=== PATIENT | female | born 1960 | race Caucasian/White ===

== ENCOUNTER 2017-02-15 10:22 | Day surgery (SDC) | payer MEDICAID, SELFPAY | END 2017-02-15 11:35 | disposition home or self-care (01) | PROVIDERS: Family Provider Internal Medicine; Visit Provider Nurse Anesthetist, Certified Registered | DX: M51.16 Intervertebral disc disorders with radiculopathy, lumbar region (principal); M96.1 Postlaminectomy syndrome, not elsewhere classified | CPT/HCPCS: 95991 ==

== ENCOUNTER → 2017-06-11 10:35 | Outpatient (POV) | payer MEDICAID, SELFPAY ==
[2017-06-11 10:54] VITALS: BP 143/96; PULSE 117; RESP 20; TEMP 36.6; O2SAT 99; BMI 33.3
--- NOTE | 2017-06-11 12:41 | HMH.PMPROC ---
- Procedure Date: 06/11/17 Time: 11:25 Anesthesiologist:: Cheri Simpson APRN Complications:: None Pre-procedure Diagnosis:: degenerative disc disease of the lumbar spine with lumbar postlaminectomy syndrome and lumbar radiculopathy Post-procedure Diagnosis:: Same Indications for Procedure:: Patient is a 57-year-old female who presents today for pain pump adjustment. Patient states that she knows she should be coming for routine adjustments however she is unable to make it. She is not getting adequate pain relief rating her pain an 8 out of 10 today. Patient and I had a long discussion that this is a process and that she needs to try to be seen more often than every 3 months. Patient currently on a hydromorphone pump of 0.5 mg a day. Patient also utilizing a bolus. Today we will increase her pump. She denies any side effects to the medication. Physical Exam General: Alert and oriented x3, no acute distress, pleasant and cooperative, [on room air] Lungs: Resps E/U, Symmetrical chest expansion, [CTA bilateral] Eyes: PERRL Musculoskeletal: Flexion and extension of lumbar spine somewhat guarded secondary to pain, deep tendon reflexes normal, strength in upper and lower extremities [5/5], [abnormal gait noted] Neurological: speech clear, meat and poultry inspector equal, no gross sensory deficits Procedure Details:: Informed consent was obtained and the risks and benefits of the procedure were explained to the patient. The patient was taken to the procedure room and placed in a sitting position. Non-invasive monitoring was placed including noninvasive blood pressure cuff and noninvasive pulse oximeter. Patient's pump was interrogated and the rate was changed from 0.5 mg a day of Dilaudid to 0.75 mg a day of Dilaudid in her PTC was changed to 0.075 mg every 3 hours up to 6 times a day. Patient tolerated the procedure well. Plan and Disposition:: She will be in for a refill next month. We will adjust her again at that time. And I reiterated that she needs to make her appointment so that we can start better managing her pain. Patient states she does not want to be a bother. I stated that she needs to make sure that she comes to her appointment so we can adjust her pump. We will also check in a home refill for her. This note was dictated using voice recognition software and may contain errors or omissions
--- NOTE | 2017-06-11 12:44 | P.PCN_ITS ---
- Procedure Date: 06/11/17 Time: 11:25 Anesthesiologist:: Cheri Simpson APRN Complications:: None Pre-procedure Diagnosis:: degenerative disc disease of the lumbar spine with lumbar postlaminectomy syndrome and lumbar radiculopathy Post-procedure Diagnosis:: Same Indications for Procedure:: Patient is a 57-year-old female who presents today for pain pump adjustment. Patient states that she knows she should be coming for routine adjustments however she is unable to make it. She is not getting adequate pain relief rating her pain an 8 out of 10 today. Patient and I had a long discussion that this is a process and that she needs to try to be seen more often than every 3 months. Patient currently on a hydromorphone pump of 0.5 mg a day. Patient also utilizing a bolus. Today we will increase her pump. She denies any side effects to the medication. Physical Exam General: Alert and oriented x3, no acute distress, pleasant and cooperative, [ on room air] Lungs: Resps E/U, Symmetrical chest expansion, [CTA bilateral] Eyes: PERRL Musculoskeletal: Flexion and extension of lumbar spine somewhat guarded secondary to pain, deep tendon reflexes normal, strength in upper and lower extremities [5/5], [abnormal gait noted] Neurological: speech clear, partridge farmer equal, no gross sensory deficits Procedure Details:: Informed consent was obtained and the risks and benefits of the procedure were explained to the patient. The patient was taken to the procedure room and placed in a sitting position. Non-invasive monitoring was placed including noninvasive blood pressure cuff and noninvasive pulse oximeter. Patient's pump was interrogated and the rate was changed from 0.5 mg a day of Dilaudid to 0.75 mg a day of Dilaudid in her PTC was changed to 0.075 mg every 3 hours up to 6 times a day. Patient tolerated the procedure well. Plan and Disposition:: She will be in for a refill next month. We will adjust her again at that time. And I reiterated that she needs to make her appointment so that we can start better managing her pain. Patient states she does not want to be a bother. I stated that she needs to make sure that she comes to her appointment so we can adjust her pump. We will also check in a home refill for her. This note was dictated using voice recognition software and may contain errors or omissions
[2017-06-11 19:19] LABS: Amphetamine/Metha Screen,Urine Negative ng/mL (<1000); Barbiturates Screen,Urine Negative ng/mL (<200); Benzodiazepines Screen,Urine Positive ng/mL (200); Cannabinoid Screen,Urine Negative ng/mL (<50); Cocaine Screen,Urine Negative ng/g (<300); Methadone Screen,Urine Negative ng/mL (<300); Opiate Screen,Urine Positive ng/mL (<300); Phencyclidine Screen,Urine Negative ng/mL (<25)
[2017-06-18 17:14] LABS: Codeine Negative (Cutoff=100); Hydrocodone Negative (Cutoff=100); Hydromorphone Positive (.); Morphine Negative (Cutoff=100)
[2017-06-19 06:16] LABS: Opiates Positive (.)
== END ==
PROVIDERS: Family Provider Internal Medicine; PCP Internal Medicine; Visit Provider Clinical Nurse Specialist Family Health
DX: M54.16 Radiculopathy, lumbar region (principal); Z79.899 Other long term (current) drug therapy
CPT/HCPCS: 80305; 80361; 80365; 99212; G0480

== ENCOUNTER → 2017-11-11 11:02 | Outpatient (POV) | payer MEDICAID, SELFPAY ==
[2017-11-11 11:12] VITALS: BP 153/88; PULSE 116; RESP 18; O2SAT 98; BMI 39.3
--- NOTE | 2017-11-11 11:55 | HMH.PMPROC ---
- Procedure Date: 11/11/17 Time: 11:40 Anesthesiologist:: Cheri Simpson APRN Complications:: None Pre-procedure Diagnosis:: Post laminectomy syndrome of the lumbar spine, degenerative disc disease lumbar spine Post-procedure Diagnosis:: Same Indications for Procedure:: Patient is a 57-year-old white female who presents today for intrathecal pain pump reprogram. Patient is frustrated today stating that she was told by Dr. Reyes that she was having morphine putting her pump today. Patient and I had a long discussion about this. Patient states her intrathecal pain pump is never worked for her. Patient states she did not get any relief from her intrathecal trial and has never had any relief from her intrathecal pain pump. Patient is currently on a periodic flow 0.2 mg per day. Patient has been states that he had back surgery and is on oral narcotics and this does well for him. Patient and I discussed the possibility that this therapy may not help her. I also discussed the possibility of returning to Dr. Lima. We will give her an increase today. We will also set her up for a dye study and then fill her with morphine at this time. Physical Exam General: Alert and oriented x3, no acute distress, pleasant and cooperative, [on room air] Lungs: Resps E/U, Symmetrical chest expansion, Eyes: PERRL Musculoskeletal: Flexion and extension of lumbar spine somewhat guarded secondary to pain, deep tendon reflexes normal, strength in upper and lower extremities [5/5], [abnormal gait noted] Neurological: speech clear, deputy sheriff building guard equal, no gross sensory deficits Procedure Details:: Informed consent was obtained and the risk and benefits of the procedure were explained to the patient. The patient was taken to the procedure room where noninvasive monitoring was placed including noninvasive blood pressure cuff and pulse oximeter. Patient's pump was interrogated. The infusion rate was used to 0.3 mg every 2 hours for total daily dose of 3.6 mg a day of Dilaudid. The patient tolerated the procedure well. Plan and Disposition:: We will set the patient up for a dye study. If the dye study is appropriate we will fill her with morphine 10 mg/mL. I will follow-up with the patient after this. This note was dictated using voice recognition software and may contain errors or omissions
[2017-11-11 13:44] LABS: Amphetamine/Metha Screen,Urine Negative ng/mL (<1000); Barbiturates Screen,Urine Negative ng/mL (<200); Benzodiazepines Screen,Urine Negative ng/mL (<200); Cannabinoid Screen,Urine Negative ng/mL (<50); Cocaine Screen,Urine Negative ng/mL (<300); Methadone Screen,Urine Negative ng/mL (<300); Opiate Screen,Urine Positive ng/mL (<300); Phencyclidine Screen,Urine Negative ng/mL (<25)
[2017-11-17 12:10] LABS: Codeine Negative (Cutoff=100); Hydrocodone Negative (Cutoff=100); Hydromorphone Positive (.); Morphine Negative (Cutoff=100)
[2017-11-18 03:31] LABS: Opiates Positive (.)
== END ==
PROVIDERS: Family Provider Internal Medicine; PCP Internal Medicine; Visit Provider Clinical Nurse Specialist Family Health
DX: M96.1 Postlaminectomy syndrome, not elsewhere classified (principal); M51.36 Other intervertebral disc degeneration, lumbar region
CPT/HCPCS: 62368; 80305; 80361; 80365; G0480

== ENCOUNTER → 2017-12-16 13:01 | Outpatient (POV) | payer MEDICAID, SELFPAY ==
[2017-12-16 13:17] VITALS: BP 141/96; PULSE 102; RESP 18; O2SAT 97; BMI 33.3
--- NOTE | 2017-12-16 13:51 | P.PCN_ITS ---
- Procedure Date: 12/16/17 Time: 13:35 Anesthesiologist:: Cheri Simpson APRN Complications:: None Pre-procedure Diagnosis:: Postlaminectomy syndrome lumbar spine with degenerative disc disease of lumbar spine Post-procedure Diagnosis:: Same Indications for Procedure:: Patient is a pleasant 57-year-old white female who presents today for intrathecal pain pump reprogram. Patient was switched from Dilaudid to morphine and was started on a 2 mg a day. Patient denies any side effects she states she is having no pain relief. She rates her pain a 7 out of 10 today. Physical Exam General: Alert and oriented x3, no acute distress, pleasant and cooperative, [on room air] Lungs: Resps E/U, Symmetrical chest expansion, Eyes: PERRL Musculoskeletal: Flexion and extension of lumbar spine somewhat guarded secondary to pain, deep tendon reflexes normal, strength in upper and lower extremities [5/5], [abnormal gait noted] Neurological: speech clear, resaw carriage operator equal, no gross sensory deficits Procedure Details:: Informed consent was obtained and the risk and benefits of the procedure were explained to the patient. The patient was taken to the procedure room where noninvasive monitoring was placed including noninvasive blood pressure cuff and pulse oximeter. Patient's pump was interrogated. The infusion rate was changed to 0.33 mg every 2 hours. The patient tolerated the procedure well. Plan and Disposition:: I will follow-up with the patient in 2 weeks reassess her symptoms at that time. Patient's been instructed to call the office if she has any issues prior to her next appointment. This note was dictated using voice recognition software and may contain errors or omissions
== END ==
PROVIDERS: PCP Internal Medicine; Visit Provider Clinical Nurse Specialist Family Health
DX: M96.1 Postlaminectomy syndrome, not elsewhere classified (principal); M51.36 Other intervertebral disc degeneration, lumbar region
CPT/HCPCS: 62368; 99212

== ENCOUNTER → 2018-01-06 13:10 | Outpatient (POV) | payer MEDICAID, SELFPAY ==
--- NOTE | 2018-01-06 13:46 | HMH.PMPROC ---
- Procedure Date: 01/06/18 Time: 13:40 Anesthesiologist:: Cheri Simpson APRN Complications:: None Pre-procedure Diagnosis:: Degenerative disc disease lumbar spine with lumbar radiculopathy and post laminectomy syndrome Post-procedure Diagnosis:: Same Indications for Procedure:: Patient is a 57-year-old white female who comes today for pain pump adjustment. Patient rates her pain a 7 out of 10 however she is in much better spirits than she was at her last visit. Patient is currently on intrathecal infusion of 0.33 mg every 2 hours for total daily dose of 3.96 mg of morphine a day. She states she does not have any side effects but she states that it has helped a little bit. ROS General: no recent weight change, no fever, no sleep disturbances Respiratory: no cough, no shortness of air, no recurring pulmonary infections Cardiovascular/Peripheral Vascular: No chest pain, No palpitations, no edema, no shortness of breath. Gastrointestinal: no incontinence, normal bowel movements reported Genitourinary: no incontinence Musculoskeletal: Back pain Psychiatric: normal mood/ affect Neurological: [denies weakness in extremities], [denies balance issues] Procedure Details:: Informed consent was obtained and the risk and benefits of the procedure were explained to the patient. The patient was taken to the procedure room where noninvasive monitoring was placed including noninvasive blood pressure cuff and pulse oximeter. Patient's pump was interrogated. The infusion rate was increased to 0.45 mg every 2 hours for total daily dose of 5.4 mg a day. The patient tolerated the procedure well. Plan and Disposition:: At her next intrathecal pain pump refill and reprogram we will change her concentration to morphine 20 mg/mL. Patient has been instructed to call the office if she has any issues prior to her next appointment. This note was dictated using voice recognition software and may contain errors or omissions
[2018-01-06 14:43] VITALS: BP 152/70; PULSE 94; RESP 18; O2SAT 98; BMI 33.3
== END ==
PROVIDERS: PCP Internal Medicine; Visit Provider Clinical Nurse Specialist Family Health
DX: M51.16 Intervertebral disc disorders with radiculopathy, lumbar region (principal); M96.1 Postlaminectomy syndrome, not elsewhere classified
CPT/HCPCS: 62368

== ENCOUNTER → 2018-05-28 13:56 | Outpatient (CLI) | payer MEDICAID, SELFPAY ==
--- NOTE | 2018-05-28 14:03 | XR_ITS ---
XR coccyx 2V CLINICAL INDICATION: Posttraumatic pain ITS.REASON: FALL ORDERING PHYSICIAN: Cheri Simpson PATIENT AGE: 58 years Comparison: None FINDINGS: No fracture or dislocation. Normal alignment. There are minimal osteoarthritic changes of left SI joint inferiorly. A lucency is noted over the left ilium anteriorly and medially felt to be due to gas within the overlying bowel not apparent on the vocational rehabilitation teacher view of the subsequent CT scan. IMPRESSION: No acute finding
--- NOTE | 2018-05-28 14:03 | CT_ITS ---
CT lumbar spine wo con INDICATION: ITS.REASON: LOW BACK PAIN, FALL ORDERING PHYSICIAN: Cheri Simpson PATIENT AGE: 58 years COMPARISON: None TECHNIQUE: Axial images obtained with sagittal and coronal reformats. All CT scans at the facility use one or more dose reduction, viz: automated exposure control, ma/kV adjustment per patient size (including targeted exams where dose is matched to indication, i.e. head), or iterative reconstruction technique. FINDINGS: There is normal alignment. There is mild lumbar scoliosis convex right with pelvic tilt. The left side of the pelvis is tilted superior to the right side. There is a epidural catheter present with the tip at the T12-L1 level along the right aspect of the thecal sac. T12-L1, L1-L2, L2-L3 and L3-L4 have an unremarkable appearance. There is mild facet and ligamentum flavum hypertrophy at L4-L5 with bilateral lateral recess and foraminal narrowing. Bulging disc is present at L5-S1 with left paracentral disc protrusion/herniation. Suggest MRI for further evaluation. There is moderate bilateral foraminal narrowing. No acute fracture or dislocation. No lytic or blastic change. IMPRESSION: Bulging disc at L5-S1 with left paracentral disc protrusion/herniation. Consider MRI for further evaluation.. IMPRESSION:
== END ==
PROVIDERS: PCP Internal Medicine; Visit Provider Clinical Nurse Specialist Family Health
DX: M54.5 Low back pain (principal); M53.3 Sacrococcygeal disorders, not elsewhere classified
CPT/HCPCS: 72131; 72220

== ENCOUNTER → 2018-06-03 10:09 | Outpatient (POV) | payer MEDICAID, SELFPAY ==
[2018-06-03 10:21] VITALS: BP 110/68; PULSE 100; RESP 18; O2SAT 98; BMI 33.6
--- NOTE | 2018-06-03 13:11 | HMH.PMPROC ---
- Procedure Date: 06/03/18 Time: 13:12 Anesthesiologist:: Cheri Simpson APRN Complications:: None Pre-procedure Diagnosis:: Degenerative disc disease lumbar spine with lumbar radiculopathy Post-procedure Diagnosis:: Same Indications for Procedure:: Patient is a 58-year-old white female who presents today for intrathecal pain pump adjustment along with discussion in regards to her new CT scan. Patient states she has fallen recently she thought her tailbone is broken her x-ray was normal. CT does show bulging disc. Patient has been states that it is worsening and wants to have an MRI. Patient does have an intrathecal pain pump I do not know how good of picture we will get with this but he is wanting a new MRI. We will order this. Patient has been seen by a surgeon who stated she had nothing at this time that they could offer her. Patient has been set up with neurology however she has not seen them yet. 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 The patient was taken to the procedure room where noninvasive monitoring was placed including noninvasive blood pressure cuff and pulse oximeter. Patient's pump was interrogated and reprogrammed. The infusion rate was increased from 7 mg of morphine a day to 7.25 mg/day. The patient tolerated the procedure well. Plan and Disposition:: I will follow-up with the patient after MRI reassess her symptoms at that time. She is been instructed to call the office if she has any issues prior to her next appointment. Dr. Reyes has reviewed this note and agrees with this plan of care. This note was dictated using voice recognition software and may contain errors or omissions
--- NOTE | 2018-06-12 13:54 | PC.NURSE ---
duexis tid with 2 refills called into [facility] pharmacy in [place] with 2 refills per provider order.
== END ==
PROVIDERS: PCP Internal Medicine; Visit Provider Clinical Nurse Specialist Family Health
DX: M51.16 Intervertebral disc disorders with radiculopathy, lumbar region (principal)
CPT/HCPCS: 62368

== ENCOUNTER → 2018-06-30 13:18 | Outpatient (POV) | payer MEDICAID, SELFPAY ==
[2018-06-30 13:57] VITALS: BP 118/71; PULSE 87; RESP 18; O2SAT 98; BMI 33.3
--- NOTE | 2018-06-30 14:57 | HMH.PMPROC ---
- Procedure Date: 06/30/18 Time: 14:57 Anesthesiologist:: Cheri Simpson APRN Complications:: None Pre-procedure Diagnosis:: Degenerative disc disease lumbar spine with lumbar postlaminectomy syndrome lumbar radiculopathy Post-procedure Diagnosis:: Same Indications for Procedure:: Patient is a 58-year-old white female who presents today to discuss recent MRI denial. Patient and I discussed that I do not believe an MRI would be effective in order to see her lumbar spine due to her intrathecal pain pump and artifact that it produces. Patient seems to be frustrated by this. Patient does have some degeneration shown on her CT scan. Patient rates her pain a 7 out of 10. Patient's asking why will you not give me pain medication to go with my pump . We discussed that we would not be giving her any narcotic medication I offered multiple times to help with weaning off of her intrathecal pain pump she is uninterested in this. Patient has been states that there has to be a surgery that will fix her. I discussed with both of them that they would have to follow-up with Dr. Lima and they could take the CT scan with them for his review. Patient and I discussed changing her medications I believe that would be beneficial. We will take the morphine out of her intrathecal pain pump and add Dilaudid/bupivacaine. Patient's current dose is 7.25 mg/day. Physical Exam General: Alert and oriented x3, no acute distress, pleasant and cooperative, [on room air] Lungs: Resps E/U, Symmetrical chest expansion, Eyes: PERRL Musculoskeletal: Flexion and extension of lumbar spine somewhat guarded secondary to pain, deep tendon reflexes normal, strength in upper and lower extremities [5/5], [abnormal gait noted] Neurological: speech clear, financial services sales representative equal, no gross sensory deficits Procedure Details:: Informed consent was obtained and the risk and benefits of the procedure were explained to the patient. The patient was taken to the procedure room where noninvasive monitoring was placed including noninvasive blood pressure cuff and pulse oximeter. Patient's pump was interrogated and reprogrammed. The infusion rate was increased to 8.5 mg/day of morphine. The patient tolerated the procedure well. Plan and Disposition:: Again at this point the patient's significant other states that neurosurgeon that these pumps do not work for everyone. I again offered to wean her off of her pump. Patient does not want to move forward with that. Patient is good to be seen by neurology. I did potentially think that she may be a candidate for avert a flex or a mild procedure however her symptomology is not indicative of spinal stenosis. We will follow-up with the patient at her next intrathecal pain pump refill. By this time we should have information in regards to her neurology appointment. Dr. Reyes has reviewed this note and agrees with this plan of care. This note was dictated using voice recognition software and may contain errors or omissions
== END ==
PROVIDERS: PCP Internal Medicine; Visit Provider Clinical Nurse Specialist Family Health
DX: M51.16 Intervertebral disc disorders with radiculopathy, lumbar region (principal); M96.1 Postlaminectomy syndrome, not elsewhere classified
CPT/HCPCS: 62368; 99212

== ENCOUNTER → 2018-08-11 09:54 | Outpatient (CLI) | payer MEDICAID, SELFPAY | PROVIDERS: PCP Internal Medicine; Visit Provider Specialist | DX: G93.40 Encephalopathy, unspecified (principal) | CPT/HCPCS: 95819 ==

== ENCOUNTER → 2018-08-11 11:28 | Outpatient (POV) | payer MEDICAID, SELFPAY ==
--- NOTE | 2018-08-11 13:03 | P.PCN_ITS ---
- Procedure Date: 08/11/18 Time: 13:00 Anesthesiologist:: Cheri Simpson APRN Complications:: None Pre-procedure Diagnosis:: Degenerative disc disease lumbar spine with lumbar radiculopathy Post-procedure Diagnosis:: Same Indications for Procedure:: Patient is a 58-year-old white female who presents today for follow-up after her morphine was switched to Dilaudid. Patient's quite vocal about his displeasure in regards to her treatment here. Patient has been given multiple modalities of treatment that she is refused including physical therapy along with injections. Patient was offered potential surgical consult. She was uninterested in this. She is currently on a Dilaudid dose of 3 mg/day and bupivacaine 1.5 mg/day she would like a slight increase today. She states that has been beneficial she however rates her pain 9 out of 10. Physical Exam General: Alert and oriented x3, no acute distress, pleasant and cooperative, [on room air] Lungs: Resps E/U, Symmetrical chest expansion, Eyes: PERRL Musculoskeletal: Flexion and extension of lumbar spine somewhat guarded secondary to pain, deep tendon reflexes normal, strength in upper and lower extremities [5/5], [abnormal gait noted] Neurological: speech clear, qual field manager equal, no gross sensory deficits Procedure Details:: Informed consent was obtained and the risk and benefits of the procedure were explained to the patient. The patient was taken to the procedure room where noninvasive monitoring was placed including noninvasive blood pressure cuff and pulse oximeter. Patient's pump was interrogated and reprogrammed. The infusion rate was increased to 3.6 mg a day of Dilaudid and 1.8 mg a day bupivacaine. The patient tolerated the procedure well. Plan and Disposition:: Given the vocalized displeasure that her was given her the opportunity to be referred elsewhere. Patient is adamant that she does not want to be referred elsewhere at this time. Again patient has been offered multiple modalities of treatment which she is uninterested in. Patient has been seen by multiple physicians in regards to her current pain. At this time we will continue to manage her with her intrathecal therapies. Patient has been refers to her doing better on oral narcotics again it was offered that we could turn her intrathecal pain pump off and she can find a physician who would be willing to prescribe this. Again she declined. Patient's been instructed to call the office if she has any issues prior to her next appointment.
[2018-08-11 13:22] VITALS: BP 123/72; PULSE 89; RESP 18; O2SAT 98; BMI 33.3
== END ==
PROVIDERS: PCP Internal Medicine; Visit Provider Clinical Nurse Specialist Family Health
DX: M51.16 Intervertebral disc disorders with radiculopathy, lumbar region (principal)
CPT/HCPCS: 62368

== ENCOUNTER → 2018-08-11 12:56 | Outpatient (POV) | payer MEDICAID, SELFPAY | PROVIDERS: Visit Provider Specialist | DX: R29.898 Other symptoms and signs involving the musculoskeletal system (principal); M79.603 Pain in arm, unspecified; M79.604 Pain in right leg; M79.605 Pain in left leg | CPT/HCPCS: 95886; 95911 ==

== ENCOUNTER → 2018-08-18 09:04 | Outpatient (CLI) | payer MEDICAID, SELFPAY ==
[2018-08-18 09:32] LABS: Basophils % 0.6 % (0.1-2.0); Eosinophils # 0.1 K/mm3 (0.0-0.4); Eosinophils % 1.8 % (0.1-12.0); Hemoglobin 10.8 g/dL (12.2-16.2); Lymphocytes # 1.2 K/mm3 (0.7-4.5); Lymphocytes % 37.2 % (10-50); Mean Corpuscular HGB Conc 30.8 g/dL (31.8-35.4); Mean Corpuscular Hemoglobin 31.2 pg (27.0-31.2); Mean Corpuscular Volume 101.3 fl (81-99); Mean Platelet Volume 9.2 fl (7.4-10.4); Monocytes # 0.2 K/mm3 (0.1-1.0); Monocytes % 4.5 % (1.7-9.3); Neutrophils # 1.8 K/mm3 (1.8-7.8); Neutrophils % 55.9 % (37.0-80.0); Platelet Count 126 K/mm3 (142-424); Red Blood Count 3.46 M/mm3 (4.20-5.40); White Blood Count 3.2 K/mm3 (4.8-10.8)
[2018-08-18 09:52] LABS: Alanine Aminotransferase 37 U/L (12-78); Albumin Level 3.4 gm/dL (3.4-5.0); Albumin/Globulin Ratio 0.8 (1.1-1.8); Alkaline Phosphatase 95 U/L (46-116); Anion Gap 15.1 mEq/L (5-15); Aspartate Amino Transferase 36 U/L (15-37); Bilirubin,Total 0.4 mg/dL (0.2-1.0); Blood Urea Nitrogen 17 mg/dL (7-18); Calcium 8.8 mg/dL (8.5-10.1); Carbon Dioxide 27 mmol/L (21.0-32.0); Chloride 97 mmol/L (98-107); Creatinine,Serum 2.26 mg/dL (0.55-1.02); Estimated Glomerular Filt Rate 22 ml/min (>60); GFR (African American) 27 ML/MIN (>60); Globulin 4.2 gm/dl (1.3-3.2); Glucose 154 mg/dL (74-106); Potassium 4.1 mmoL/L (3.5-5.1); Sodium 135 mmol/L (136-145); Thyroid Stimulating Hormone 4.27 uIU/ml (0.358-3.740); Total Protein,Serum 7.6 gm/dL (6.4-8.2)
[2018-08-19 16:27] LABS: Folate 2.7 ng/mL (>3.0); Vitamin B12 263 pg/mL (232-1245)
== END ==
PROVIDERS: Visit Provider Specialist
DX: R29.898 Other symptoms and signs involving the musculoskeletal system (principal); M79.603 Pain in arm, unspecified; M79.604 Pain in right leg; M79.605 Pain in left leg; G93.40 Encephalopathy, unspecified; J44.9 Chronic obstructive pulmonary disease, unspecified; G47.33 Obstructive sleep apnea (adult) (pediatric)
CPT/HCPCS: 36415; 80053; 82607; 82746; 84443; 85025

== ENCOUNTER → 2018-09-08 20:13 | Outpatient (CLI) | payer MEDICAID, SELFPAY | PROVIDERS: PCP Internal Medicine; Visit Provider Specialist | DX: G47.33 Obstructive sleep apnea (adult) (pediatric) (principal); J44.9 Chronic obstructive pulmonary disease, unspecified | CPT/HCPCS: 95810 ==

== ENCOUNTER → 2019-04-14 14:47 | Outpatient (CLI) | payer MEDICAID, SELFPAY ==
[2019-04-20 19:35] LABS: Chlordiazepoxide <0.1 ug/mL (0.1-0.9)
[2019-04-21 11:28] LABS: Acetone Negative % (0.000-0.010); Butalbital <1 ug/mL (1-10); Diazepam <0.1 ug/mL (0.1-0.9); Ethanol Negative % (0.000-0.010); Isopropanol Negative % (0.000-0.010); Pentobarbital <1 ug/mL (1-5)
== END ==
PROVIDERS: Visit Provider Clinical Nurse Specialist Family Health
DX: Z79.899 Other long term (current) drug therapy (principal)
CPT/HCPCS: 36415; 80306; 80356; 80361; G0480

== ENCOUNTER 2024-06-05 10:44 | Day surgery (SDC) | payer MEDICAID, SELFPAY ==
[2024-06-04 10:00] VITALS: BMI 28.3
[2024-06-05] MEDS: LACTATED RINGERS 1000ML 1,000 ML 25 ML IV (11:11)
[2024-06-05 11:14] VITALS: BP 102/53; PULSE 65; RESP 14; TEMP 36.9; O2SAT 97
[2024-06-05] MEDS: VANCOMYCIN/WATER FOR INJ (PEG) 1.5 GM/300 ML PIGGYBACK IV (11:25)
[2024-06-05 11:26] LABS: Chloride 100 mmol/L (98-107); Potassium 3.8 mmoL/L (3.5-5.1); Sodium 137 mmol/L (136-145)
[2024-06-05 11:29] LABS: Anion Gap 14.8 mEq/L (5-15); Blood Urea Nitrogen 79 mg/dl (7-17); Calcium 9.2 mg/dl (8.4-10.2); Carbon Dioxide 26 mmol/L (22.0-30.0); Creatinine Clearance Estimated 35 mL/min (50-200); Estimated Glomerular Filt Rate 25 ml/min (>60); GFR (African American) 30 ML/MIN (>60); Glucose 104 mg/dl (74-100)
[2024-06-05 11:44] LABS: Basophils % 0.4 % (0.1-2.0); Eosinophils # 0.1 Kmm3 (0.0-0.4); Eosinophils % 1.5 % (0.1-12.0); Hemoglobin 12.7 g/dL (12.2-16.2); Lymphocytes % 22.6 % (10-50); Mean Corpuscular HGB Conc 33.4 g/dL (31.8-35.4); Mean Corpuscular Hemoglobin 28.6 pg (27.0-31.2); Mean Corpuscular Volume 85.6 fl (81-99); Mean Platelet Volume 9.6 fl (7.4-10.4); Monocytes # 0.3 K/mm3 (0.1-1.0); Monocytes % 7.5 % (1.7-9.3); Neutrophils % 67.3 % (37.0-80.0); Nucleated Red Blood Cells # 0 10^3/uL; Nucleated Red Blood Cells % 0 %; Platelet Count 121 K/mm3 (142-424); Red Blood Count 4.44 M/mm3 (4.20-5.40); Red Cell Distribution Width 14.2 % (11.5-17.5); Red Cell Distribution Width-SD 44.2 fL; White Blood Count 4.5 K/mm3 (4.8-10.8)
--- NOTE | 2024-06-05 12:48 | P.PNANES_ITS ---
[facility] Disclaimer: The information contained in this section may have been updated after the patient was seen, as this information can be updated by other users. Medical History (Updated 06/04/24 @ 10:02 by Jorge Rodriguez RN) History of COPD History of hypertension History of diabetes mellitus Surgical History (Updated 06/04/24 @ 10:02 by Jorge Rodriguez RN) History of hysterectomy History of appendectomy History of cholecystectomy History of knee surgery Family History (Updated 06/04/24 @ 10:03 by Jorge Rodriguez RN) Other Family history of heart disease Social History (Updated 06/04/24 @ 09:59 by Jorge Rodriguez RN) Smoking Status: Current every day smoker tobacco type: e-cigarettes second hand exposure: Yes alcohol intake: never substance use type: prescription drug current occupational status: disabled Travel in the last 8 weeks: None household members: spouse housing: house current occupational exposures/hazards: No caffeine: Yes Have you lived/traveled outside [place] in past 30 days?: No Contact w/someone who lives/traveled outside [place] past 30 days?: No Exposure to someone with infectious disease in past 14 days?: No Do you have a fever (greater than 100.4 F or 38 C)?: No Have you tested positive for COVID-19: No Exposed to someone with COVID-19 in past 14 days?: No Do you have a sore throat?: No Do you have a cough?: No Do you have any weakness?: No Are you experiencing any nausea/vomitting?: No Do you have any diarrhea?: No Are you experiencing any unusual bleeding?: No Do you have any muscle aches/pain?: No Do you have any abdominal pain?: No Are you experiencing loss of taste or smell?: No [facility] Anesthesia Checklist Patient Identification Patient Identification: Arm Band and Family Structural Data Admitted From: Home Planned Operative Procedure/s: Neurostimulator Catheter + Generator Placement Consent for Planned Operative Procedure(s) Verified: Yes Verified Documents: Surgical Consent, History and Physical and Cardiac Clearance NPO Status Verified Time NPO: 00:00 Additional verifications Anesthesia Reactions: No Hx Blood Transfusions: No Blood Transfusion Reaction: No Airway Assessment Mallampati Score:: Class II C-Spine Mobility Assessed: Yes TMJ Mobility Assessed: Yes Dentition: Edentulous Neurological Assessment Level of Consciousness: Awake, Alert and Appropriate Anesthesia Plan Anesthesia Risk discussed: Yes Anesthesia Plan: Verified ASA Class: III Anesthesia Type: MAC
[2024-06-05] MEDS: LIDOCAINE 1% W/EPI 1:100,000 20ML VIAL 20 ML (13:21)
[2024-06-05] MEDS: SODIUM CHLORIDE 0.9% 20ML VIAL 40 ML IV (13:22)
[2024-06-05] MEDS: GENTAMICIN 80 MG/2 ML VIAL (13:22)
[2024-06-05 13:55] VITALS: BP 116/59; PULSE 69; RESP 16; TEMP 36.4; O2SAT 94
[2024-06-05 14:05] VITALS: BP 114/54; PULSE 67; RESP 16; TEMP 36.6; O2SAT 96
[2024-06-05 14:15] VITALS: BP 113/59; PULSE 65; RESP 16; O2SAT 96
[2024-06-05 14:25] VITALS: BP 112/60; PULSE 66; RESP 18; O2SAT 97
--- NOTE | 2024-06-05 14:56 | EXP.OP.NOTE ---
Date of procedure: 06/05/24 Pre-op Diagnosis:: Degenerative disease of lumbar spine with lumbar radiculopathy symptoms and peripheral diabetic neuropathy Post-op Diagnosis:: Same Procedure performed:: Permanent placement spinal cord stimulator with epidural lead placement x 2 and spinal cord stimulator generator placement Surgeon:: Cody Reyes MD IP LITIGATION ASSOCIATE:: Other Anesthesia: MAC Estimated blood loss (mL): 5 Clinical Note:: This patient is a pleasant 64-year-old white female who we are treating for diabetic peripheral neuropathy as well as degenerative disease of lumbar spine with lumbar radiculopathy symptoms. She has failed all previous conservative treatments including injections, oral medications, physical therapy and she is not a candidate for surgery. She has had a successful psychological evaluation and a successful spinal cord similar trial. She presents for permanent placement of spinal cord stimulator today. This is a [employer] system Operative findings:: None Operative note:: Informed consent was obtained risk and benefits of the procedure were explained to the patient. The patient was taken to the operating room placed prone on the procedure table. She was prepped and draped in sterile fashion. C-arm fluoroscopy was used to view the L1-L2 and L2-3 interspace. The skin and subcutaneous tissues were anesthetized using lidocaine. I made incision and dissected down to the lumbar paraspinous fascia. A 17-gauge epidural needle was inserted and advanced into the L2-L3 interspace. After confirmation of needle placement in the epidural space a stimulating lead was inserted and advanced very easily to the T9-T10 interspace. A second needle was inserted and advanced again into the L2-L3 interspace. Again after confirmation needle placement in the epidural space a second stimulating lead was inserted and advanced again very easily to the T9-T10 vertebral body. Leads were felt to be good position. They were right and left of midline and posterior. The stylette and needles were withdrawn. The leads were secured to the fascia with an anchor device and 2-0 Prolene. I created the generator pocket in the left flank. I tunneled the leads from the back to the generator pocket attached to leads to the generator. Impedances were checked and found to be okay. Both incisions were then closed 2-0 Vicryl followed by 4-0 nylon and jitendra. Patient was taken recovery in stable condition. Patient tolerated the procedure well with no complications. The patient was programmed by the [employer] licensing representative with good stimulation in all areas of pain. Patient was discharged home neurologic intact with good relief of pain symptoms. Plan and disposition: Follow-up with this patient in 1 week for wound check and reporting. Will follow-up in 2 to 3 weeks for suture and staple removal. Condition: stable Disposition: PACU Complications:: none
== END 2024-06-05 14:31 | disposition home or self-care (01) ==
PROVIDERS: Visit Provider Anesthesiology
PROC: (CPT 63685; principal; 2024-06-05 12:15)
DX: M51.16 Intervertebral disc disorders with radiculopathy, lumbar region (principal); E11.42 Type 2 diabetes mellitus with diabetic polyneuropathy; F17.290 Nicotine dependence, other tobacco product, uncomplicated
CPT/HCPCS: 63650 ×2; 63685; 80048; 85025; 96374; C1778; C1820; J1580; J2003; J2004; J2250; J2704; J3372; J7120